=== PATIENT | male | born 1960 | race Caucasian/White ===

== ENCOUNTER → 2024-04-03 17:28 | Outpatient (REF) | payer OTHER, SELFPAY | LOC: RCS 17:28 | PROVIDERS: ATTENDING PHYSICIAN Physician Assistant | DX: R01.1 Cardiac murmur, unspecified (principal); Z86.711 Personal history of pulmonary embolism; Z98.890 Other specified postprocedural states | CPT/HCPCS: 93306 ==

== ENCOUNTER → 2024-06-06 12:03 | Outpatient (REF) | payer OTHER, SELFPAY ==
[2024-06-06 15:34] LABS: Blood Urea Nitrogen 13 mg/dl (9-20); Calcium 9.6 mg/dl (8.4-10.2); Carbon Dioxide 24 mmol/L (22-30); Chloride 107 mmol/L (98-107); Glucose 94 mg/dl (70-99); Potassium 4.3 mmol/L (3.5-5.1); Sodium 141 mmol/L (135-145); eGFR > 60.00
== END ==
LOC: HWLAB 12:03
PROVIDERS: ATTENDING PHYSICIAN Orthopaedic Surgery; FAMILY PHYSICIAN Physician Assistant
DX: Z01.818 Encounter for other preprocedural examination (principal)
CPT/HCPCS: 36415; 80048; 93005

== ENCOUNTER → 2024-09-14 12:41 | Outpatient (REF) | payer OTHER, SELFPAY | LOC: RAD 12:41 | PROVIDERS: ATTENDING PHYSICIAN Student in an Organized Health Care Education/Training Program; FAMILY PHYSICIAN Internal Medicine; OTHER PHYSICIAN Physician Assistant | DX: I77.810 Thoracic aortic ectasia (principal) | CPT/HCPCS: 71275; Q9967 ==

== ENCOUNTER 2025-01-05 15:23 | Emergency (ER) | payer OTHER, SELFPAY ==
[2025-01-05 15:31] VITALS: BP 138/84
[2025-01-05 15:50] LABS: % Basophils 1.3 % (0-2); % Eosinophils 2.9 % (0-6); % Immature Granulocytes 0.2 % (0-0.5); % Lymphocytes 23.6 % (20.5-51.1); % Monocytes 8.3 % (1.7-9.3); % Neutrophils 63.7 % (42.2-75.2); Absolute Basophils 0.1 10^3/uL (0-0.2); Absolute Eosinophils 0.2 10^3/uL (0-0.7); Absolute Lymphocytes 1.3 10^3/uL (1.2-3.4); Absolute Monocytes 0.5 10^3/uL (0.1-0.6); Absolute Neutrophils 3.5 10^3/uL (1.4-6.5); Hematocrit 42.2 % (39.0-52.0); Hemoglobin 14.5 g/dL (13.0-18.0); Mean Corp Hgb Conc. 34.4 g/dL (33.0-37.0); Mean Corpuscular Hgb 32.2 pg (27.0-31.0); Mean Corpuscular Volume 93.6 fL (80.0-94.0); Mean Platelet Volume 9.3 fL (7.4-10.4); Nucleated Red Blood Cells % 0 % (-); Platelet Count 221 10^3/uL (130-400); Red Blood Cell Count 4.51 10^6/uL (4.70-6.10); Red Cell Dist. Width 13.5 % (11.5-14.5); White Blood Cell Count 5.5 10^3/uL (4.8-10.8)
[2025-01-05 16:06] LABS: ALT (SGPT) 27 U/L (0-50); AST (SGOT) 32 U/L (17-59); Albumin 4.7 g/dl (3.5-5.0); Alkaline Phosphatase 38 U/L (38-126); Blood Urea Nitrogen 21 mg/dl (9-20); Calcium 9.9 mg/dl (8.4-10.2); Carbon Dioxide 28 mmol/L (22-30); Chloride 110 mmol/L (98-107); Glucose 87 mg/dl (70-99); Potassium 4.8 mmol/L (3.5-5.1); Sodium 142 mmol/L (135-145); Total Bilirubin 0.8 mg/dl (0.2-1.3); Total Protein 7.4 g/dl (6.3-8.2); eGFR > 60.00
--- NOTE | 2025-01-05 16:44 | ED.GENMED ---
History of Present Illness
General
Chief Complaint: Skin Surface Trauma
Source: patient
Time Seen by Provider: 01/05/25 16:31
History of Present Illness
History of Present Illness:
A 64-year-old male presents to the emergency room complaining of injury to his index finger and middle finger while using a chainsaw. The chainsaw kicked causing injury to his fingers. Patient states his last tetanus shot was just recently because
they have a new grandchild. Patient also developed some chest discomfort while coming to the emergency room and after looking at the injury to his hand. Chest pain is mild and described as a pressure. Patient believes it is anxiety.
Past History
Past History
ED Past Medical History: Asthma, Valvular disease and Other (Mitral valve repair, pulmonary embolus, paroxysmal atrial fibrillation)
Social History
Tobacco: Non-smoker
Alcohol: Occasional
Living: with family
Family History
Family History: Other (Dad with CHF and Hodgkin's disease)
Phy Exam
Physical Exam
Physical Exam:
General: Awake, Alert, Oriented X3. No acute distress.
Vitals: unremarkable
Head: Atraumatic
Eyes: Pupils equal, EOMI
Throat: Airway intact, no exudates
Neck: Trachea midline
Lungs: Clear and equal b/l
Heart: Regular rate, no murmurs
Abd: Soft, Nontender, No pulsatile mass
Neuro: Nonfocal
Skin: Warm, dry, no rash
Extremities: pulses equal b/l, no edema. Distal index finger has a avulsion type injury to the distal phalanx. Nailbed is a bit involved. Middle finger has mild superficial laceration. The radial aspect of the index finger of the nail was
partially avulsed. 1 suture was placed through the nail itself to approximate this radial margin.
Course
Orders/Labs/Results
Orders:
Orders
01/05/25 15:25
EKG [Electrocardiogram (*1)] Urgent
Reason for Study: Chest Pain
EKG- Treatment ONCE
01/05/25 15:39
Complete Blood Count/With Diff Urgent
Comprehensive Metabolic Panel Urgent
01/05/25 16:43
Finger(s)/Thumb 2 View Lt [CR Finger(s)/thumb Min 2 Vw Lt] Urgent
Comment:
Reason For Exam: chainsaw injury
Indicate Which Finger:: Index Finger
01/05/25 17:05
Troponin I Urgent
01/05/25 18:33
Cephalexin Monohydrate [Keflex] 500 mg PO NOW STA
01/05/25 18:36
Troponin I Urgent
Abnormal Lab Results
01/05/25
15:39
RBC 4.51 L 10^6/uL
(4.70-6.10)
MCH 32.2 H pg
(27.0-31.0)
Chloride 110 H mmol/L
(98-107)
BUN 21 H mg/dl
(9-20)
01/05/25 15:39
01/05/25 15:39
Vital Signs
Initial and Last Documented VS:
Initial Vital Signs
Temp Pulse Resp BP Pulse Ox
97.1 F 85 16 138/84 99
01/05/25 15:31 01/05/25 15:31 01/05/25 15:31 01/05/25 15:31 01/05/25 15:31
Last Documented Vital Signs
Temp Pulse Resp BP Pulse Ox
97.1 F 84 16 130/82 99
01/05/25 15:31 01/05/25 18:57 01/05/25 18:57 01/05/25 18:57 01/05/25 18:57
Procedures
Laceration Closure
Left Distal Second Finger:
Status of Wound: dirty
Size of Wound in cm: 1
Description of Wound Edges: macerated
Preparation: cleaned with saline
Anesthesia: 1% Lidocaine and Digital-Regional
Revision/Debridement: minor revision and debrided
Wound exploration: explored to base- no FB
Type of Closure: single layer closure and interrupted sutures
Skin Closure Material: 5-0 nylon
Number of sutures: 7
MDM/Problems Addressed
Differential Diagnosis Includes:
Fracture, laceration, foreign body retention
MDM/Problems Addressed:
Patient presents after injuring his left index finger with a chainsaw. Still phalanx of the index finger is quite avulsed. Digital block placed. Approximated wound edges as best as possible. Will start the patient on Keflex given the significant
crush/avulsion injury to the distal phalanx. Patient given contact information to follow-up with hand surgery. No fracture noted on x-ray.
Patient noted that he had chest pain shortly after the injury. EKG shows no acute ischemic changes. Patient had 2 troponins which are normal. Patient placed on the chest pain hotline.
Chronic conditions affecting care: HTN, Arrhythmia (Atrial fibrillation) and Other (CHF, mitral valve repair)
*Radiology
Radiology exam reviewed: preliminary read by ED provider (No fracture noted on my review of the patient's finger x-ray)
*Pulse Oximetry
Patient hypoxic: no
*EKG
Interpreted by ED Provider?: Yes
Interpretation: abnormal
Heart Rate: 88
Rate: normal
Rhythm: sinus and PAC's
[place]: normal axis
Interval: normal interval
QRS Pattern: normal QRS
Ischemia: non-specific ST changes
*Critical Care Note
Total Time (30-74mins, 75-104mins- exclusive of procedures): Not Applicable
ED Attending Note
-
Portions of this chart may have been created with voice recognition software.� Occasional wrong word or��sound alike� substitutions may have occurred due to the inherent limitations of voice recognition software.
Discharge Plan
Departure
Patient Disposition: Home (Routine Discharge)
Date of Disposition: 01/05/25
Time of Disposition: 19:12
Patient with high blood pressure during this ER visit?: No
Condition: Good
Discharge Problem:
Nailbed laceration, finger, Chest pain
Instructions: Laceration Repair With Stitches (DC), Chest Pain DCA Follow Up, BLOOD PRESSURE
Prescriptions:
New
cephalexin 500 mg capsule
500 mg PO BID 3 Days Qty: 6 0RF
No Action
rivaroxaban [Xarelto] 20 MG tablet
20 mg PO DAILY
Referrals:
Sung Chavarria MD [Active] -
UNKNOWN - PT DOES,NOT KNOW [Family Provider] -
Activity Restrictions/Additional Instructions:
Please call Dr. Chavarria's office Tuesday morning for an appointment so he can follow up on how your finger is healing. Take the antibiotic twice a day for 3 days.
Interventions
Interventions:
*Risk Screen - Suicide Last Done: 01/05/25 15:31
*General Assessment Last Done: 01/05/25 15:31
*Neglect/Abuse Screening Last Done: 01/05/25 15:31
*ED- Fall Risk Assessment Last Done: 01/05/25 19:19
*ED COVID-19 Vaccine History Last Done: 01/05/25 18:55
*Nursing Disposition Last Done: 01/05/25 19:19
ED-Skin Assessment Last Done: 01/05/25 18:56
Discharge Date and Time
Discharge Date/Time: 01/05/25 19:19
Print Language: [id number]
[2025-01-05 17:42] LABS: Troponin I 0.014 ng/ml
[2025-01-05] MEDS: KEFLEX 500 MG PO (18:40)
[2025-01-05 18:57] VITALS: BP 130/82
--- NOTE | 2025-01-05 18:58 | EDRN ---
Wound cleansed w/ NSS irrigation, bacitracin applied to site per verbal orders, bulky dressing applied, wound care education given and teach back performed.
[2025-01-05 19:10] LABS: Troponin I 0.017 ng/ml
== END 2025-01-05 19:19 | disposition home or self-care (01) ==
LOC: EMR 15:23
PROVIDERS: EMERGENCY PHYSICIAN Emergency Medicine
DX: S61.321A Laceration with foreign body of left index finger with damage to nail, initial encounter (principal); S61.213A Laceration without foreign body of left middle finger without damage to nail, initial encounter; R07.89 Other chest pain; W29.3XXA Contact with powered garden and outdoor hand tools and machinery, initial encounter; J45.909 Unspecified asthma, uncomplicated; I48.0 Paroxysmal atrial fibrillation; Z86.711 Personal history of pulmonary embolism; Z88.8 Allergy status to other drugs, medicaments and biological substances; Z91.048 Other nonmedicinal substance allergy status
CPT/HCPCS: 99284; 12041; 73140; 80053; 84484; 85025; 93005

== ENCOUNTER → 2025-05-22 17:21 | Outpatient (REF) | payer OTHER, SELFPAY | LOC: MRI 17:21 | PROVIDERS: ATTENDING PHYSICIAN Physician Assistant; FAMILY PHYSICIAN Internal Medicine | DX: H90.A22 Sensorineural hearing loss, unilateral, left ear, with restricted hearing on the contralateral side (principal) | CPT/HCPCS: 70553; A9575 ==